=== PATIENT | female | born 1990 | race Caucasian/White ===

== ENCOUNTER 2017-12-22 21:21 | Emergency (ER) | payer OTHER ==
[2017-12-22 21:28] VITALS: BP 114/60; PULSE 77; TEMP 97.7; BMI 19.6
[2017-12-22] MEDS ORDERED: SULFAMETHOXAZOLE/TRIMETHOPRIM 800MG/160MG D.S. TABLET PO ONE (22:22)
[2017-12-22] MEDS ORDERED: IBUPROFEN 400 MG TABLET (FP) PO ONE ×2 (22:22→22:29)
[2017-12-22] MEDS ORDERED: CEPHALEXIN MONOHYDRATE 500 MG CAPSULE (UD) PO ONE (22:22)
--- NOTE | 2017-12-22 22:27 | PDOC ---
History of Present Illness - General Chief Complaint: Pain Stated Complaint: PAIN Time Seen by Provider: 12/22/17 22:10 History Source: Patient Exam Limitations: No Limitations - History of Present Illness Initial Comments: 12/22/17 22:49 Patient is a 27-year-old female with past medical history of breast reduction, who presents to the emergency department today complaining of right breast pain. Patient states that she noticed the pain started approximately 1 week ago and she felt a bump. Since then the bump has gotten more painful and red. She is not taking any medication for the pain. She states that it hurts to run. Denies fevers, chills, recent illness, breast-feeding. Past History - Travel Traveled outside of the country in the last 30 days: No Close contact w/someone who was outside of country & ill: No - Past Medical History Allergies/Adverse Reactions: Allergies Allergy/AdvReac Type Severity Reaction Status Date / Time No Known Allergies Allergy Verified 12/22/17 21:24 Home Medications: Ambulatory Orders Cephalexin Monohydrate [Keflex -] 500 mg PO BID #14 capsule 12/22/17 Ibuprofen 800 mg PO TID #30 tablet 12/22/17 Sulfamethoxazole/Trimethoprim [Bactrim Ds -] 1 tab PO BID #14 tablet 12/22/17 - Suicide/Smoking/Psychosocial Hx Smoking History: Never smoked Review of Systems - Review of Systems Able to Perform ROS?: Yes Comments:: 12/22/17 23:10 CONSTITUTIONAL: Absent: fever, chills, diaphoresis, generalized weakness, malaise, loss of appetite BREAST: Pain to R nipple/ breast CARDIOVASCULAR: Absent: chest pain, loss of consciousness, palpitations, irregular heart rate, peripheral edema MUSCULOSKELETAL: Absent: myalgia, arthralgia, joint swelling SKIN: Absent: rash, itching, pallor HEMATOLOGIC/IMMUNOLOGIC: Absent: easy bleeding, easy bruising, lymphadenopathy, frequent infections ENDOCRINE: Absent: unexplained weight gain, unexplained weight loss, heat intolerance, cold intolerance NEUROLOGIC: Absent: headache, focal weakness or paresthesias, dizziness, unsteady gait, seizure, mental status changes, bladder or bowel incontinence Is the patient limited French proficient: No *Physical Exam - Vital Signs Last Vital Signs Temp Pulse Resp BP Pulse Ox 97.7 F 77 16 114/60 100 12/22/17 21:27 12/22/17 21:27 12/22/17 21:27 12/22/17 21:27 12/22/17 21:27 - Physical Exam Comments: 12/22/17 22:41 GENERAL: Well developed, well nourished. Awake and alert. No acute distress. HEENT: Normocephalic, atraumatic. PERRLA, EOMI. No conjunctival pallor. Sclera are non- icteric. Moist mucous membranes. Oropharynx is clear. NECK: Supple. Full ROM. No JVD. Carotid pulses 2+ and symmetric, without bruits. No thyromegaly. No lymphadenopathy. BREAST: R breast with TTP of the superior R nipple. Area of induration felt measuring approximately the size of a pea with erythema to the 12 oclock position of the nipple . Area freely mobile. Scars from breast reduction present. No fluid expressed from the nipples. L breast normal with no signs of infection. EXTREMITIES: No cyanosis. No clubbing. No edema. No calf tenderness. SKIN: Warm and dry. Normal capillary refill. No rashes. No jaundice. NEUROLOGICAL: Alert, awake, appropriate. Cranial nerves 2-12 intact. No deficits to light touch and temperature in face, upper extremities and lower extremities. No motor deficits in the in face, upper extremities and lower extremities. Normoreflexic in the upper and lower extremities. Normal speech. Toes are down- going bilaterally. Gait is normal without ataxia. ED Treatment Course - ADDITIONAL ORDERS Additional order review: Laboratory Results 12/22/17 22:10 Urine HCG, Qual Negative Medical Decision Making - Medical Decision Making 12/22/17 22:44 Patient is a 27-year-old female past medical history of breast reduction who presents to emergency department today complaining of right-sided breast pain for approximately one week. On exam concerning for cellulitis. Area of induration palpated at the 12 o'clock position behind the nipple. Area is freely mobile. We will treat with Bactrim and Keflex at this time. First dose given in the ED. Patient also started to do warm water soaks and follow-up with CARDIOGRAPHER. Return precautions given. Patient understands all discharge instructions and all questions were answered *DC/Admit/Observation/Transfer Diagnosis at time of Disposition: Cellulitis of right breast - Discharge Dispostion Disposition: HOME Condition at time of disposition: Stable Admit: No - Prescriptions Prescriptions: Cephalexin Monohydrate [Keflex -] 500 mg PO BID #14 capsule Ibuprofen 800 mg PO TID #30 tablet Sulfamethoxazole/Trimethoprim [Bactrim Ds -] 1 tab PO BID #14 tablet - Referrals Referrals: Ailcia Hung DO [Staff Physician] - - Patient Instructions Additional Instructions: You have cellulitis. This is a skin infection which you can feel. Please take the Bactrim and Keflex twice a day for one week. Please take all the antibiotics even if you feel better. You may use warm water soaks to the area. Please do this approximately 4-5 times a day. Please avoid shaving the skin around the area of redness. You may take Tylenol or Motrin as needed for pain. Please follow up with an product examiner within one week. A referral has been provided to you. Return to the emergency department if you have worsening redness, fevers, increasing pain, or have any changes in your symptoms. - Post Discharge Activity
[2017-12-22] MEDS ORDERED: SULFAMETHOXAZOLE/TRIMETHOPRIM 800MG/160MG D.S. TABLET ONE (22:28)
[2017-12-22] MEDS ORDERED: CEPHALEXIN MONOHYDRATE 500 MG CAPSULE (UD) ONE (22:29)
== END 2017-12-22 22:35 | disposition home or self-care (01) ==
LOC: JERFT 21:21
DX: N61.0 Mastitis without abscess (principal)
CPT/HCPCS: 84703; 99281-25

== ENCOUNTER 2018-10-14 14:35 | Emergency (ER) | payer OTHER ==
--- NOTE | 2018-10-14 15:34 | PDOC ---
Rapid Medical Evaluation Time Seen by Provider: 10/14/18 15:28 Medical Evaluation: Allergies Allergy/AdvReac Type Severity Reaction Status Date / Time No Known Allergies Allergy Verified 12/22/17 21:24 10/14/18 15:29 Pt c/o: redness around left nipple since yesterday, no injury, no piercing, breast reduction 2016 Pt on brief exam: noted erythema to 7-10 oclock around areola , no palpable mass , no drainage, Patient ordered for: breast ultrasound ordered Pt to proceed to the ED Discharge Disposition - Diagnosis Breast pain - Referrals - Patient Instructions - Post Discharge Activity
[2018-10-14 15:38] VITALS: BP 119/74; PULSE 80; TEMP 97.9; BMI 24.0
--- NOTE | 2018-10-14 16:18 | PDOC ---
History of Present Illness - General Chief Complaint: Wound Stated Complaint: PAIN Time Seen by Provider: 10/14/18 15:28 History Source: Patient Exam Limitations: Clinical Condition - History of Present Illness Initial Comments: 10/14/18 16:20 Patient with no significant past medical history present with complaint of redness and pain to left periareolar of left breast since yesterday. Patient reported history of breast reduction 2 years ago with no complications. Patient denies any trauma or injury to breast. Patient denies any fever or chills. Patient denies any other symptoms Timing/Duration: 24 hours Past History - Past Medical History Allergies/Adverse Reactions: Allergies Allergy/AdvReac Type Severity Reaction Status Date / Time No Known Allergies Allergy Verified 12/22/17 21:24 Home Medications: Ambulatory Orders Amox-Tr/K Cl [Augmentin - 875Mg Tablet] 1 tab PO BID #14 tablet 10/14/18 - Suicide/Smoking/Psychosocial Hx Smoking History: Never smoked Hx Alcohol Use: No Drug/Substance Use Hx: No Review of Systems - Review of Systems Able to Perform ROS?: Yes Is the patient limited Hungarian proficient: No Constitutional: No: Fever HEENTM: No: Symptoms Reported Respiratory: No: Symptoms reported Cardiac (ROS): No: Symptoms Reported ABD/GI: No: Symptoms Reported, Nausea, Vomiting Musculoskeletal: Yes: See HPI, Muscle Pain (left breast around nipple) Integumentary: Yes: Erythema (left periareola area) All Other Systems: Reviewed and Negative *Physical Exam - Vital Signs Last Vital Signs Temp Pulse Resp BP Pulse Ox 97.9 F 80 16 119/74 99 10/14/18 15:34 10/14/18 15:34 10/14/18 15:34 10/14/18 15:34 10/14/18 15:34 - Physical Exam General Appearance: Yes: Nourished, Appropriately Dressed. No: Apparent Distress HEENT: positive: Normal ENT Inspection Neck: positive: Supple Respiratory/Chest: negative: Respiratory Distress, Accessory Muscle Use Cardiovascular: positive: Regular Rhythm, Regular Rate Gastrointestinal/Abdominal: positive: Soft. negative: Tender Integumentary: positive: Erythema (to medial side of periareola region. no open wounds. no dipple discharge or erythema.) Neurologic: positive: Fully Oriented, Alert Moderate Sedation - Procedure Monitoring Vital Signs: Procedure Monitoring Vital Signs Temperature 97.9 F 10/14/18 15:34 Pulse Rate 80 10/14/18 15:34 Respiratory Rate 16 10/14/18 15:34 Blood Pressure 119/74 10/14/18 15:34 O2 Sat by Pulse Oximetry (%) 99 10/14/18 15:34 Medical Decision Making - Medical Decision Making 10/14/18 16:22 Patient with history of breast reduction 2 years ago present with complaint of 24 hour history of redness and pain to periareolar of left breast without fevers or chills. Exam significant for mild skin erythema to medial side of periareolar of left breast. No nipple discharge or erythema. No open wound to breast. Symptoms likely mastitis of left breast. Breast ultrasound ordered. Treat based on imaging results 10/14/18 17:47 Breast US read by imaging automotive parts salesperson report small phlegmon on medial side of periareolar area which needs follow-up. Results discussed with patient. Patient stable for discharge on Augmentin with [facility] follow-up *DC/Admit/Observation/Transfer Diagnosis at time of Disposition: Breast pain, Cellulitis of left breast - Discharge Dispostion Disposition: HOME Condition at time of disposition: Stable Decision to Admit order: No - Prescriptions Prescriptions: Amox-Tr/K Cl [Augmentin - 875Mg Tablet] 1 tab PO BID #14 tablet - Referrals Referrals: Mac Anthony MD [Staff Physician] - - Patient Instructions Printed Discharge Instructions: DI for Mastitis Additional Instructions: Breast ultrasound was normal. Take medication as prescribed.. Follow-up referred [facility] or your own [facility]. - Post Discharge Activity
== END 2018-10-14 18:32 | disposition home or self-care (01) ==
LOC: JERFT 14:35
DX: N61.1 Abscess of the breast and nipple (principal)
CPT/HCPCS: 76642-TC-LT; 99281-25